=== PATIENT | female | born 1950 | race Caucasian/White ===

== ENCOUNTER 2021-08-20 07:11 | Outpatient (REF) | payer MEDICARE, SELFPAY | END 2021-08-20 07:12 | disposition home or self-care (01) | LOC: HO.MMNH3L 07:11 | PROVIDERS: Visit Provider Family Medicine | DX: Z13.89 Encounter for screening for other disorder (principal) ==

== ENCOUNTER 2021-08-22 05:00 | Outpatient (REF) | payer MEDICARE, SELFPAY | END 2021-08-22 05:01 | disposition home or self-care (01) | LOC: HO.MMNH1L 05:00 | PROVIDERS: Visit Provider Family Medicine | DX: Z13.89 Encounter for screening for other disorder (principal) ==

== ENCOUNTER 2021-10-01 06:25 | Outpatient (REF) | payer MEDICARE, SELFPAY | END 2021-10-01 06:26 | disposition home or self-care (01) | LOC: HO.MMNH1L 06:25 | PROVIDERS: Visit Provider Family Medicine | DX: Z13.89 Encounter for screening for other disorder (principal) ==